=== PATIENT | male | born 1965 | race Two or more races ===

== ENCOUNTER 2023-02-27 12:58 | Outpatient (CLI) | payer OTHER | END 2023-02-27 13:14 | disposition home or self-care (01) | LOC: SONOGRAMA 12:58 | PROVIDERS: ATTEND Urology | DX: R39.9 Unspecified symptoms and signs involving the genitourinary system (principal); R97.21 Rising PSA following treatment for malignant neoplasm of prostate; N40.0 Benign prostatic hyperplasia without lower urinary tract symptoms ==

== ENCOUNTER 2023-03-21 14:44 | Outpatient (CLI) | payer OTHER | END 2023-03-21 14:49 | disposition home or self-care (01) | LOC: LAB 14:44 | PROVIDERS: ATTEND Radiology Diagnostic Radiology | DX: R31.21 Asymptomatic microscopic hematuria (principal) ==

== ENCOUNTER 2023-03-28 07:23 | Outpatient (CLI) | payer OTHER | END 2023-03-28 07:44 | disposition home or self-care (01) | LOC: TOM 07:23 | PROVIDERS: ATTEND Urology | DX: N40.0 Benign prostatic hyperplasia without lower urinary tract symptoms (principal); R31.21 Asymptomatic microscopic hematuria ==

== ENCOUNTER 2023-09-02 13:43 | Outpatient (CLI) | payer OTHER | END 2023-09-02 13:51 | disposition home or self-care (01) | LOC: MRI 13:43 | PROVIDERS: ATTEND Urology | DX: R31.21 Asymptomatic microscopic hematuria (principal) | CPT/HCPCS: 72148 ==

== ENCOUNTER 2024-04-29 12:06 | Outpatient (CLI) | payer OTHER | END 2024-04-29 12:08 | disposition home or self-care (01) | LOC: SONOGRAMA 12:06 | DX: M25.50 Pain in unspecified joint (principal); M67.40 Ganglion, unspecified site; M67.439 Ganglion, unspecified wrist ==

== ENCOUNTER 2024-11-08 13:27 | Outpatient (CLI) | payer OTHER | END 2024-11-08 13:38 | disposition home or self-care (01) | LOC: SONOGRAMA 13:27 | PROVIDERS: ATTEND Urology | DX: R31.21 Asymptomatic microscopic hematuria (principal); R33.9 Retention of urine, unspecified ==